=== PATIENT | female | born 1930 | race Caucasian/White ===

== ENCOUNTER 2018-02-22 15:09 | Inpatient (IN) | payer MEDICARE, OTHER ==
[2018-02-22] MEDS: CEFEPIME 2GM/50 ML (PMX) 50 ML IVPB (15:25)
[2018-02-22 15:43] LABS: ADD MAN DIFF? NO
[2018-02-22 15:48] LABS: ABNORMAL IP MESSAGE 1; BASOPHILS % 0.2 % (0.0-2.0); EOSINOPHILS % 0.1 % (0.0-7.0); HEMATOCRIT 36.4 % (37.0-47.0); LYMPHOCYTES # 0.4 10^3/ul (0.8-2.9); LYMPHOCYTES % 2.5 % (15.0-51.0); MEAN CORPUSCULAR HEMOGLOBIN 29.1 pg (29.0-33.0); MEAN CORPUSCULAR VOLUME 88.3 fl (82.0-101.0); MONOCYTE # 0.8 10^3/ul (0.3-0.9); MONOCYTES % 4.7 % (0.0-11.0); NEUTROPHIL # 15.2 10^3/ul (1.6-7.5); PLATELET COUNT 194 10^3/UL (140-415); POSITIVE DIFF @See below; RED BLOOD COUNT 4.12 10^6/ul (4.20-5.40); RED CELL DISTRIBUTION WIDTH 12.6 % (11.5-14.5)
[2018-02-22 15:48] LABS: WHITE BLOOD COUNT 16.5 10^3/ul (4.8-10.8)
[2018-02-22] MEDS: ACETAMINOPHEN 500 MG TAB PO (16:06)
[2018-02-22] MEDS: SODIUM CHLORIDE 0.9% 1L BAG IV* (16:06)
[2018-02-22] MEDS: ONDANSETRON 4 MG INJ IV (16:06)
[2018-02-22 16:07] LABS: ALANINE AMINOTRANSFERASE 565 IU/L (13-69); ALBUMIN 4.4 g/dl (3.3-4.9); ALBUMIN/GLOBULIN RATIO 1.33; ALKALINE PHOSPHATASE 320 IU/L (42-121); ANION GAP 12 (5-13); BILIRUBIN,INDIRECT 1.1 mg/dl (0-1.1); BILIRUBIN,TOTAL 1.8 mg/dl (0.2-1.3); BLOOD UREA NITROGEN 23 mg/dl (7-20); CALCIUM 9.3 mg/dl (8.4-10.2); CARBON DIOXIDE 26 mmol/L (21-31); CHLORIDE 98 mmol/L (97-110); CREATININE 1.15 mg/dl (0.44-1.00); GLUCOSE 215 mg/dl (70-220); INR 1.04; LIPASE 144 U/L (23-300); POTASSIUM 4.7 mmol/L (3.5-5.1); PROTIME 13.7 Sec (11.9-14.9); PT RATIO 1.1; SODIUM 136 mmol/L (135-144); TOTAL PROTEIN 7.7 g/dl (6.1-8.1)
[2018-02-22 16:08] LABS: PARTIAL THROMBOPLASTIN TIME 27.2 Sec (23.0-35.0)
[2018-02-22 16:21] LABS: TROPONIN-I 0.125 ng/ml (0.000-0.120)
[2018-02-22 16:22] LABS: ASPARTATE AMINO TRANSFERASE 1127 IU/L (15-46)
[2018-02-22] MEDS: ASPIRIN 81 MG TAB PO (17:06)
[2018-02-22 17:23] LABS: ADD UMIC YES; UR ASCORBIC ACID NEGATIVE (NEGATIVE); UR BACTERIA MODERATE /HPF (NONE SEEN); UR BILIRUBIN (Dip) NEGATIVE (NEGATIVE); UR BLOOD (Dip) 1+ mg/dL (NEGATIVE); UR CLARITY SLIGHTLY CLOUDY (CLEAR); UR COLOR AMBER (YELLOW); UR GLUCOSE (Dip) NEGATIVE (NEGATIVE); UR KETONES (Dip) TRACE mg/dL (NEGATIVE); UR LEUKOCYTE ESTERASE (Dip) NEGATIVE Leu/ul (NEGATIVE); UR MUCUS FEW /HPF (NONE SEEN); UR NITRITE (Dip) NEGATIVE (NEGATIVE); UR RBC 1 /HPF (0-5); UR SPECIFIC GRAVITY (Dip) 1.017 (1.003-1.030); UR TOTAL PROTEIN (Dip) 2+ mg/dl (NEGATIVE); UR UROBILINOGEN (Dip) 2+ mg/dL (NEGATIVE); UR WBC 4 /HPF (0-5)
[2018-02-22] MEDS ORDERED: ACETAMINOPHEN 325 MG TAB PO (17:30)
[2018-02-22] MEDS ORDERED: ONDANSETRON 4 MG INJ IV (17:30)
[2018-02-22 17:55] LABS: HEMOGLOBIN A1C 6.1 % (0-5.9)
[2018-02-22] MEDS ORDERED: MAGNESIUM HYDROXIDE 30ML CUP PO (18:00)
[2018-02-22] MEDS ORDERED: DOCUSATE SODIUM 100 MG CAP PO (18:00)
[2018-02-22] MEDS ORDERED: NACL 0.9% 3 ML SYG IV (18:00)
[2018-02-22] MEDS ORDERED: LORAZEPAM 0.5 MG TAB PO (18:00)
[2018-02-22 18:23] LABS: THYROID STIMULATING HORMONE 0.213 MIU/L (0.465-4.680)
[2018-02-22] MEDS ORDERED: GLUCAGON 1 MG INJ IM (18:30)
[2018-02-22] MEDS ORDERED: DEXTROSE 50% 50 ML SYRINGE IV ×2 (18:30)
[2018-02-22] MEDS ORDERED: GLUCOSE GEL 15 GRAM TUBE PO ×2 (18:30)
[2018-02-22] MEDS ORDERED: GLUCOSE GEL 15 GRAM TUBE BUCCAL (18:30)
[2018-02-22] MEDS: DEXTROSE 5%-0.45% NACL 1,000 ML IV (18:44)
[2018-02-22] MEDS: PIPER-TAZO 3.375 GM IV (PMX) 100 ML IVPB (20:47)
[2018-02-22] MEDS ORDERED: INSULIN ASPART [NOVOLOG] 3 ML PEN SC (21:00)
[2018-02-22] MEDS ORDERED: NON-FORMULARY/PATIENT OWN MED (Rosuvastatin Calcium* (Crestor*) 20 MG) PO (21:00)
[2018-02-22] MEDS: GABAPENTIN 100 MG CAP PO (23:21)
[2018-02-22] MEDS: FERROUS SULFATE (EC) 325 MG TAB PO (23:21)
[2018-02-22] MEDS: DOCUSATE SODIUM 100 MG CAP PO (23:21)
[2018-02-22] MEDS: ATORVASTATIN 80 MG TAB PO (23:21)
[2018-02-22] MEDS: ACETAMINOPHEN 325 MG TAB PO (23:59)
[2018-02-23] MEDS: INSULIN ASPART [NOVOLOG] 3 ML PEN SC ×7 (00:07→21:00)
[2018-02-23 00:26] LABS: LACTIC ACID 1.1 mmol/L (0.5-2.0)
[2018-02-23 00:48] LABS: CREATINE KINASE 194 IU/L (23-200)
[2018-02-23 02:20] LABS: CK INDEX 2.2; CK-MB 4.32 ng/ml (0.0-2.4)
[2018-02-23 05:06] LABS: ADD MAN DIFF? NO
[2018-02-23] MEDS: PIPER-TAZO 3.375 GM IV (PMX) 100 ML IVPB ×3 (05:20→23:25)
[2018-02-23 05:21] LABS: WHITE BLOOD COUNT 15.4 10^3/ul (4.8-10.8)
[2018-02-23 05:21] LABS: BASOPHILS % 0.2 % (0.0-2.0); EOSINOPHILS % 0.1 % (0.0-7.0); HEMATOCRIT 34.6 % (37.0-47.0); HEMOGLOBIN 11.4 g/dl (12.0-16.0); LYMPHOCYTES # 0.9 10^3/ul (0.8-2.9); LYMPHOCYTES % 5.8 % (15.0-51.0); MEAN CORPUSCULAR HEMOGLOBIN 29.3 pg (29.0-33.0); MEAN CORPUSCULAR HGB CONC 32.9 g/dl (32.0-37.0); MEAN CORPUSCULAR VOLUME 88.9 fl (82.0-101.0); MEAN PLATELET VOLUME 11.2 fl (7.4-10.4); MONOCYTE # 1.4 10^3/ul (0.3-0.9); MONOCYTES % 9.2 % (0.0-11.0); NEUTROPHIL # 12.9 10^3/ul (1.6-7.5); PLATELET COUNT 174 10^3/UL (140-415); RED BLOOD COUNT 3.89 10^6/ul (4.20-5.40); RED CELL DISTRIBUTION WIDTH 13.2 % (11.5-14.5)
[2018-02-23] MEDS: PANTOPRAZOLE 40 MG INJ IV (05:23)
[2018-02-23 05:55] LABS: CREATINE KINASE 198 IU/L (23-200)
[2018-02-23 06:01] LABS: CK INDEX 2.2; CK-MB 4.39 ng/ml (0.0-2.4)
[2018-02-23] MEDS: LEVOTHYROXINE 75 MCG TAB PO (06:06)
[2018-02-23] MEDS: DEXTROSE 5%-0.45% NACL 1,000 ML IV ×2 (06:09→20:11)
[2018-02-23] MEDS: ACETAMINOPHEN 325 MG TAB PO (06:09)
[2018-02-23 06:19] LABS: ALANINE AMINOTRANSFERASE 686 IU/L (13-69); ALBUMIN 3.8 g/dl (3.3-4.9); ALBUMIN/GLOBULIN RATIO 1.35; ALKALINE PHOSPHATASE 308 IU/L (42-121); ANION GAP 12 (5-13); ASPARTATE AMINO TRANSFERASE 739 IU/L (15-46); BILIRUBIN,TOTAL 2.9 mg/dl (0.2-1.3); BLOOD UREA NITROGEN 23 mg/dl (7-20); CALCIUM 8.9 mg/dl (8.4-10.2); CARBON DIOXIDE 27 mmol/L (21-31); CHLORIDE 101 mmol/L (97-110); CREATININE 1.31 mg/dl (0.44-1.00); GLUCOSE 145 mg/dl (70-220); MAGNESIUM 2.1 mg/dl (1.7-2.5); POTASSIUM 4.7 mmol/L (3.5-5.1); SODIUM 140 mmol/L (135-144); TOTAL PROTEIN 6.6 g/dl (6.1-8.1)
[2018-02-23] MEDS: DOCUSATE SODIUM 100 MG CAP PO ×2 (08:42→21:00)
[2018-02-23] MEDS: ASPIRIN (EC) 81 MG TAB PO (08:42)
[2018-02-23] MEDS: HYDROCHLOROTHIAZIDE 12.5 MG CAP PO (08:43)
[2018-02-23] MEDS: FERROUS SULFATE (EC) 325 MG TAB PO ×2 (08:44→21:00)
[2018-02-23] MEDS: LOSARTAN 50 MG TAB PO (08:45)
[2018-02-23] MEDS: ESCITALOPRAM 10 MG TAB PO (08:46)
[2018-02-23] MEDS: AMLODIPINE 10 MG TAB PO (08:46)
[2018-02-23] MEDS: METOPROLOL (XL) 50 MG TAB PO (08:46)
[2018-02-23] MEDS ORDERED: NON-FORMULARY/PATIENT OWN MED (Esomeprazole Mag Trihydrate (Nexium) 40 MG) PO (09:00)
[2018-02-23] MEDS ORDERED: NON-FORMULARY/PATIENT OWN MED (Olmesartan-Amlodipine-HCTZ (Tribenzor) 1 TAB) PO (09:00)
[2018-02-23] MEDS ORDERED: HEPARIN 1000 UNITS/ML 10 ML INJ IV (12:00)
[2018-02-23] MEDS: HEPARIN 1000 UNITS/ML 10 ML INJ IV (13:33)
[2018-02-23 13:40] LABS: ADD MAN DIFF? NO
[2018-02-23 13:43] LABS: BASOPHILS % 0.2 % (0.0-2.0); EOSINOPHILS % 0.2 % (0.0-7.0); HEMATOCRIT 33.4 % (37.0-47.0); LYMPHOCYTES # 0.8 10^3/ul (0.8-2.9); LYMPHOCYTES % 5.5 % (15.0-51.0); MEAN CORPUSCULAR HEMOGLOBIN 29.3 pg (29.0-33.0); MEAN CORPUSCULAR HGB CONC 32.9 g/dl (32.0-37.0); MEAN CORPUSCULAR VOLUME 89.1 fl (82.0-101.0); MEAN PLATELET VOLUME 11.1 fl (7.4-10.4); MONOCYTE # 1.4 10^3/ul (0.3-0.9); MONOCYTES % 9.8 % (0.0-11.0); NEUTROPHIL # 11.6 10^3/ul (1.6-7.5); NEUTROPHILS % 83.7 % (39.0-77.0); PLATELET COUNT 168 10^3/UL (140-415); RED BLOOD COUNT 3.75 10^6/ul (4.20-5.40); RED CELL DISTRIBUTION WIDTH 13.2 % (11.5-14.5)
[2018-02-23 13:43] LABS: WHITE BLOOD COUNT 13.8 10^3/ul (4.8-10.8)
[2018-02-23 14:03] LABS: INR 1.23; PARTIAL THROMBOPLASTIN TIME 30.5 Sec (23.0-35.0); PROTIME 15.7 Sec (11.9-14.9); PT RATIO 1.2
[2018-02-23] MEDS: HEPARIN 25000 UNITS/250 ML 250 ML IV (14:05)
[2018-02-23 14:14] LABS: CREATINE KINASE 214 IU/L (23-200)
[2018-02-23 14:28] LABS: CK INDEX 1.6; CK-MB 3.43 ng/ml (0.0-2.4)
[2018-02-23] MEDS ORDERED: IOHEXOL 300MG/ML 30 ML BTL (17:37)
[2018-02-23] MEDS ORDERED: INDOMETHACIN 50 MG SUPP PR (18:00)
[2018-02-23] MEDS: GABAPENTIN 100 MG CAP PO (21:00)
[2018-02-23] MEDS: ATORVASTATIN 80 MG TAB PO (21:00)
[2018-02-24] MEDS: INSULIN ASPART [NOVOLOG] 3 ML PEN SC ×5 (00:43→21:00)
[2018-02-24] MEDS: ACCU-CHEK XX (02:00)
[2018-02-24 05:42] LABS: ADD MAN DIFF? NO
[2018-02-24 05:44] LABS: BASOPHIL # 0.1 10^3/ul (0.0-0.1); BASOPHILS % 0.6 % (0.0-2.0); EOSINOPHILS # 0.1 10^3/ul (0.0-0.5); EOSINOPHILS % 1.5 % (0.0-7.0); HEMATOCRIT 31.1 % (37.0-47.0); HEMOGLOBIN 10.2 g/dl (12.0-16.0); LYMPHOCYTES # 0.8 10^3/ul (0.8-2.9); LYMPHOCYTES % 9.3 % (15.0-51.0); MEAN CORPUSCULAR HEMOGLOBIN 29.6 pg (29.0-33.0); MEAN CORPUSCULAR HGB CONC 32.8 g/dl (32.0-37.0); MEAN CORPUSCULAR VOLUME 90.1 fl (82.0-101.0); MEAN PLATELET VOLUME 11.8 fl (7.4-10.4); MONOCYTE # 0.9 10^3/ul (0.3-0.9); MONOCYTES % 10.6 % (0.0-11.0); NEUTROPHIL # 6.8 10^3/ul (1.6-7.5); NEUTROPHILS % 77.7 % (39.0-77.0); PLATELET COUNT 156 10^3/UL (140-415); RED BLOOD COUNT 3.45 10^6/ul (4.20-5.40); RED CELL DISTRIBUTION WIDTH 13.3 % (11.5-14.5)
[2018-02-24 05:44] LABS: WHITE BLOOD COUNT 8.8 10^3/ul (4.8-10.8)
[2018-02-24] MEDS: PANTOPRAZOLE 40 MG INJ IV (06:06)
[2018-02-24] MEDS: PIPER-TAZO 3.375 GM IV (PMX) 100 ML IVPB ×3 (06:07→20:54)
[2018-02-24] MEDS: LEVOTHYROXINE 75 MCG TAB PO (06:07)
[2018-02-24] MEDS: DEXTROSE 5%-0.45% NACL 1,000 ML IV ×2 (06:07→22:51)
[2018-02-24 06:09] LABS: CREATINE KINASE 175 IU/L (23-200)
[2018-02-24 06:21] LABS: CK INDEX 1.4; CK-MB 2.44 ng/ml (0.0-2.4)
[2018-02-24 06:25] LABS: ALANINE AMINOTRANSFERASE 397 IU/L (13-69); ALBUMIN 3.5 g/dl (3.3-4.9); ALBUMIN/GLOBULIN RATIO 1.16; ALKALINE PHOSPHATASE 273 IU/L (42-121); ASPARTATE AMINO TRANSFERASE 279 IU/L (15-46); B-TYPE NATRIURETIC PEPTIDE 1990 PG/ML (0-450); BILIRUBIN,INDIRECT 0.6 mg/dl (0-1.1); BILIRUBIN,TOTAL 0.8 mg/dl (0.2-1.3); BLOOD UREA NITROGEN 23 mg/dl (7-20); CALCIUM 8.2 mg/dl (8.4-10.2); CARBON DIOXIDE 25 mmol/L (21-31); CREATININE 1.48 mg/dl (0.44-1.00); GLUCOSE 157 mg/dl (70-220); TOTAL PROTEIN 6.5 g/dl (6.1-8.1)
[2018-02-24 06:33] LABS: FREE T4 (FREE THYROXINE) 1.37 ng/dl (0.85-1.93)
[2018-02-24 06:58] LABS: CHOLESTEROL 114 mg/dl (100-200)
[2018-02-24 06:58] LABS: CHOL/HDL RATIO 4.7 RATIO; HDL CHOLESTEROL 24 mg/dl (33-92); LDL CHOLESTEROL,CALCULATED 51 mg/dl; TRIGLYCERIDES 195 mg/dl (0-149)
[2018-02-24 07:10] LABS: ANION GAP 10 (5-13); CHLORIDE 102 mmol/L (97-110); SODIUM 137 mmol/L (135-144)
[2018-02-24 08:00] LABS: MAGNESIUM 2.4 mg/dl (1.7-2.5)
[2018-02-24] MEDS: ESCITALOPRAM 10 MG TAB PO (09:00)
[2018-02-24] MEDS ORDERED: ASPIRIN 300 MG SUPP PR (09:00)
[2018-02-24] MEDS: DOCUSATE SODIUM 100 MG CAP PO ×2 (09:00→20:54)
[2018-02-24] MEDS: LOSARTAN 50 MG TAB PO (09:00)
[2018-02-24] MEDS: FERROUS SULFATE (EC) 325 MG TAB PO ×2 (09:00→20:53)
[2018-02-24] MEDS: HYDROCHLOROTHIAZIDE 12.5 MG CAP PO (09:00)
[2018-02-24] MEDS: ASPIRIN (EC) 81 MG TAB PO (10:30)
[2018-02-24] MEDS: METOPROLOL (XL) 50 MG TAB PO (10:31)
[2018-02-24] MEDS: AMLODIPINE 10 MG TAB PO (10:31)
[2018-02-24 16:48] LABS: ADD UMIC YES; UR AMORPHOUS CRYSTAL FEW /HPF (NONE SEEN); UR ASCORBIC ACID NEGATIVE (NEGATIVE); UR BACTERIA FEW /HPF (NONE SEEN); UR BILIRUBIN (Dip) NEGATIVE (NEGATIVE); UR BLOOD (Dip) 1+ mg/dL (NEGATIVE); UR CLARITY SLIGHTLY CLOUDY (CLEAR); UR COLOR AMBER (YELLOW); UR GLUCOSE (Dip) NEGATIVE (NEGATIVE); UR KETONES (Dip) NEGATIVE (NEGATIVE); UR LEUKOCYTE ESTERASE (Dip) NEGATIVE Leu/ul (NEGATIVE); UR NITRITE (Dip) NEGATIVE (NEGATIVE); UR RBC 3 /HPF (0-5); UR SPECIFIC GRAVITY (Dip) 1.029 (1.003-1.030); UR SQUAMOUS EPITHELIAL CELL FEW /HPF (FEW); UR TOTAL PROTEIN (Dip) 2+ mg/dl (NEGATIVE); UR UROBILINOGEN (Dip) 1+ mg/dL (NEGATIVE); UR WBC 10 /HPF (0-5)
[2018-02-24 16:59] LABS: SODIUM,URINE RANDOM 67 mmol/L (30-90)
[2018-02-24 16:59] LABS: CREATININE,URINE RANDOM 220.31 mg/dl (20-320)
[2018-02-24] MEDS: ATORVASTATIN 80 MG TAB PO (20:53)
[2018-02-24] MEDS: GABAPENTIN 100 MG CAP PO (20:53)
[2018-02-25] MEDS: ACCU-CHEK XX (02:00)
[2018-02-25] MEDS: PIPER-TAZO 3.375 GM IV (PMX) 100 ML IVPB ×3 (05:11→22:00)
[2018-02-25] MEDS: PANTOPRAZOLE (EC) 40 MG TAB PO (05:11)
[2018-02-25] MEDS: LEVOTHYROXINE 75 MCG TAB PO (05:11)
[2018-02-25 06:26] LABS: ADD MAN DIFF? NO
[2018-02-25 06:41] LABS: WHITE BLOOD COUNT 6.7 10^3/ul (4.8-10.8)
[2018-02-25 06:41] LABS: BASOPHILS % 0.5 % (0.0-2.0); EOSINOPHILS # 0.2 10^3/ul (0.0-0.5); EOSINOPHILS % 3.6 % (0.0-7.0); HEMATOCRIT 31.9 % (37.0-47.0); HEMOGLOBIN 10.4 g/dl (12.0-16.0); LYMPHOCYTES % 14.3 % (15.0-51.0); MEAN CORPUSCULAR HEMOGLOBIN 29.6 pg (29.0-33.0); MEAN CORPUSCULAR HGB CONC 32.6 g/dl (32.0-37.0); MEAN CORPUSCULAR VOLUME 90.9 fl (82.0-101.0); MEAN PLATELET VOLUME 11.9 fl (7.4-10.4); MONOCYTE # 0.9 10^3/ul (0.3-0.9); MONOCYTES % 13.8 % (0.0-11.0); NEUTROPHIL # 4.5 10^3/ul (1.6-7.5); NEUTROPHILS % 67.5 % (39.0-77.0); PLATELET COUNT 182 10^3/UL (140-415); RED BLOOD COUNT 3.51 10^6/ul (4.20-5.40); RED CELL DISTRIBUTION WIDTH 13.2 % (11.5-14.5)
[2018-02-25 07:12] LABS: ANION GAP 9 (5-13); BLOOD UREA NITROGEN 19 mg/dl (7-20); CALCIUM 8.9 mg/dl (8.4-10.2); CARBON DIOXIDE 29 mmol/L (21-31); CHLORIDE 105 mmol/L (97-110); CREATININE 1.21 mg/dl (0.44-1.00); GLUCOSE 150 mg/dl (70-220); MAGNESIUM 2.4 mg/dl (1.7-2.5); PHOSPHORUS 2.9 mg/dl (2.5-4.9); POTASSIUM 4.3 mmol/L (3.5-5.1); SODIUM 143 mmol/L (135-144)
[2018-02-25] MEDS: INSULIN ASPART [NOVOLOG] 3 ML PEN SC ×4 (07:39→21:00)
[2018-02-25] MEDS: ASPIRIN (EC) 81 MG TAB PO (08:34)
[2018-02-25] MEDS: AMLODIPINE 10 MG TAB PO (08:36)
[2018-02-25] MEDS: FERROUS SULFATE (EC) 325 MG TAB PO ×2 (08:36→22:01)
[2018-02-25] MEDS: METOPROLOL (XL) 50 MG TAB PO (08:36)
[2018-02-25] MEDS: DOCUSATE SODIUM 100 MG CAP PO ×2 (08:37→22:01)
[2018-02-25] MEDS: ESCITALOPRAM 10 MG TAB PO (08:37)
[2018-02-25] MEDS: DEXTROSE 5%-0.45% NACL 1,000 ML IV (14:33)
[2018-02-25] MEDS ORDERED: INDOMETHACIN 50 MG SUPP PR (18:29)
[2018-02-25] MEDS ORDERED: IOHEXOL 300MG/ML 30 ML BTL (18:29)
[2018-02-25] MEDS ORDERED: ROCURONIUM 50 MG INJ (19:05)
[2018-02-25] MEDS ORDERED: ETOMIDATE 20 MG INJ (19:05)
[2018-02-25] MEDS ORDERED: LIDOCAINE 1% (MDV) 20 ML INJ (19:05)
[2018-02-25] MEDS ORDERED: MIDAZOLAM 1 MG/ML 2 ML INJ (19:05)
[2018-02-25] MEDS ORDERED: FENTAnyl 50 MCG/ML VIAL (19:05)
[2018-02-25] MEDS ORDERED: PHENYLephrine (100 MCG/ML) 5ML SYG (19:30)
[2018-02-25] MEDS ORDERED: LABETALOL HCL 20MG INJ (19:55)
[2018-02-25] MEDS ORDERED: SUGAMMADEX SODIUM 200 MG/2 ML VIAL IV (20:43)
[2018-02-25] MEDS: ATORVASTATIN 80 MG TAB PO (22:01)
[2018-02-25] MEDS: DIATR MEGLU/DIATRIZOATE SODIUM 120 ML BTL (22:01)
[2018-02-25] MEDS: GABAPENTIN 100 MG CAP PO (22:01)
[2018-02-25] MEDS: INDOMETHACIN 50 MG SUPP PR (22:02)
[2018-02-25] MEDS: ONDANSETRON 4 MG INJ IV (22:59)
[2018-02-26] MEDS: DEXTROSE 5%-0.45% NACL 1,000 ML IV (01:31)
[2018-02-26] MEDS: ACCU-CHEK XX (02:00)
[2018-02-26] MEDS: METOCLOPRAMIDE 10 MG INJ IV (03:27)
[2018-02-26] MEDS ORDERED: METOCLOPRAMIDE 10 MG INJ IM (03:30)
[2018-02-26] MEDS ORDERED: ONDANSETRON 4 MG INJ IV (06:00)
[2018-02-26] MEDS: PANTOPRAZOLE (EC) 40 MG TAB PO (06:00)
[2018-02-26] MEDS: PIPER-TAZO 3.375 GM IV (PMX) 100 ML IVPB ×2 (06:07→13:27)
[2018-02-26] MEDS: LEVOTHYROXINE 75 MCG TAB PO (06:08)
[2018-02-26] MEDS: morphine 4 MG/ML VIAL IV ×2 (06:39→06:59)
[2018-02-26] MEDS: ESCITALOPRAM 10 MG TAB PO (08:50)
[2018-02-26] MEDS: ASPIRIN (EC) 81 MG TAB PO (08:50)
[2018-02-26] MEDS: METOPROLOL (XL) 50 MG TAB PO (08:51)
[2018-02-26] MEDS: AMLODIPINE 10 MG TAB PO (08:51)
[2018-02-26] MEDS: DOCUSATE SODIUM 100 MG CAP PO ×2 (08:52→20:56)
[2018-02-26] MEDS: FERROUS SULFATE (EC) 325 MG TAB PO ×2 (08:52→20:56)
[2018-02-26] MEDS: INSULIN ASPART [NOVOLOG] 3 ML PEN SC ×4 (09:06→20:57)
[2018-02-26 11:27] LABS: ADD MAN DIFF? NO
[2018-02-26 11:38] LABS: ABNORMAL IP MESSAGE 1; BASOPHILS % 0.3 % (0.0-2.0); HEMATOCRIT 33.9 % (37.0-47.0); HEMOGLOBIN 10.9 g/dl (12.0-16.0); LYMPHOCYTES # 0.6 10^3/ul (0.8-2.9); LYMPHOCYTES % 5.8 % (15.0-51.0); MEAN CORPUSCULAR HEMOGLOBIN 28.8 pg (29.0-33.0); MEAN CORPUSCULAR HGB CONC 32.2 g/dl (32.0-37.0); MEAN CORPUSCULAR VOLUME 89.4 fl (82.0-101.0); MEAN PLATELET VOLUME 11.5 fl (7.4-10.4); MONOCYTE # 0.8 10^3/ul (0.3-0.9); MONOCYTES % 7.9 % (0.0-11.0); NEUTROPHIL # 8.3 10^3/ul (1.6-7.5); NEUTROPHILS % 85.4 % (39.0-77.0); PLATELET COUNT 201 10^3/UL (140-415); RED BLOOD COUNT 3.79 10^6/ul (4.20-5.40); RED CELL DISTRIBUTION WIDTH 12.9 % (11.5-14.5)
[2018-02-26 11:38] LABS: WHITE BLOOD COUNT 9.8 10^3/ul (4.8-10.8)
[2018-02-26 11:43] LABS: POSITIVE DIFF @See below
[2018-02-26 12:02] LABS: ANION GAP 9 (5-13); BLOOD UREA NITROGEN 14 mg/dl (7-20); CALCIUM 8.9 mg/dl (8.4-10.2); CARBON DIOXIDE 28 mmol/L (21-31); CHLORIDE 105 mmol/L (97-110); CREATININE 0.96 mg/dl (0.44-1.00); GLUCOSE 205 mg/dl (70-220); MAGNESIUM 1.9 mg/dl (1.7-2.5); PHOSPHORUS 4.3 mg/dl (2.5-4.9); POTASSIUM 4.2 mmol/L (3.5-5.1); SODIUM 142 mmol/L (135-144)
[2018-02-26 12:33] LABS: AMYLASE 1770 U/L (11-123)
[2018-02-26 12:33] LABS: LIPASE 16176 U/L (23-300)
[2018-02-26 13:04] LABS: ALANINE AMINOTRANSFERASE 247 IU/L (13-69); ALBUMIN 3.5 g/dl (3.3-4.9); ALKALINE PHOSPHATASE 331 IU/L (42-121); ASPARTATE AMINO TRANSFERASE 109 IU/L (15-46); BILIRUBIN,INDIRECT 0.3 mg/dl (0-1.1); BILIRUBIN,TOTAL 0.3 mg/dl (0.2-1.3); TOTAL PROTEIN 6.3 g/dl (6.1-8.1)
[2018-02-26] MEDS: SOD CHLORIDE 0.9% 1,000 ML IV ×2 (13:21→20:56)
[2018-02-26 14:43] LABS: CREATININE, RANDOM URINE 211 mg/dL (20-275); MICROALBUMIN 12.5 mg/dL; MICROALBUMIN/CREATININE RATIO 59 (<30)
[2018-02-26] MEDS: MEROPENEM 1 GM/50ML(PMX) 50 ML IVPB (17:16)
[2018-02-26] MEDS: GABAPENTIN 100 MG CAP PO (20:56)
[2018-02-26] MEDS: ATORVASTATIN 80 MG TAB PO (20:57)
[2018-02-27] MEDS: ACCU-CHEK XX (01:32)
[2018-02-27] MEDS: MEROPENEM 1 GM/50ML(PMX) 50 ML IVPB ×3 (01:36→20:58)
[2018-02-27] MEDS: SOD CHLORIDE 0.9% 1,000 ML IV ×4 (02:20→22:30)
[2018-02-27] MEDS: ONDANSETRON INJ 8 MG in DEXTROSE 5% 50 ML IV (03:41)
[2018-02-27] MEDS: ACETAMINOPHEN 325 MG TAB PO (05:01)
[2018-02-27] MEDS: MECLIZINE 25 MG TAB PO (05:01)
[2018-02-27] MEDS: PANTOPRAZOLE (EC) 40 MG TAB PO (06:00)
[2018-02-27 06:06] LABS: ADD MAN DIFF? NO
[2018-02-27] MEDS: LEVOTHYROXINE 75 MCG TAB PO (06:11)
[2018-02-27 06:12] LABS: WHITE BLOOD COUNT 20.2 10^3/ul (4.8-10.8)
[2018-02-27 06:12] LABS: ABNORMAL IP MESSAGE 1; BASOPHILS % 0.2 % (0.0-2.0); HEMATOCRIT 35.7 % (37.0-47.0); HEMOGLOBIN 11.6 g/dl (12.0-16.0); LYMPHOCYTES # 0.8 10^3/ul (0.8-2.9); LYMPHOCYTES % 3.9 % (15.0-51.0); MEAN CORPUSCULAR HEMOGLOBIN 28.9 pg (29.0-33.0); MEAN CORPUSCULAR HGB CONC 32.5 g/dl (32.0-37.0); MEAN CORPUSCULAR VOLUME 88.8 fl (82.0-101.0); MEAN PLATELET VOLUME 11.4 fl (7.4-10.4); MONOCYTE # 1.5 10^3/ul (0.3-0.9); MONOCYTES % 7.6 % (0.0-11.0); NEUTROPHIL # 17.6 10^3/ul (1.6-7.5); NEUTROPHILS % 87.3 % (39.0-77.0); PLATELET COUNT 237 10^3/UL (140-415); POSITIVE DIFF @See below; RED BLOOD COUNT 4.02 10^6/ul (4.20-5.40); RED CELL DISTRIBUTION WIDTH 13.2 % (11.5-14.5)
[2018-02-27 06:51] LABS: ANION GAP 13 (5-13); BLOOD UREA NITROGEN 12 mg/dl (7-20); CALCIUM 8.6 mg/dl (8.4-10.2); CARBON DIOXIDE 26 mmol/L (21-31); CHLORIDE 105 mmol/L (97-110); CREATININE 0.78 mg/dl (0.44-1.00); GLUCOSE 160 mg/dl (70-220); MAGNESIUM 1.8 mg/dl (1.7-2.5); PHOSPHORUS 2.8 mg/dl (2.5-4.9); POTASSIUM 3.6 mmol/L (3.5-5.1); SODIUM 144 mmol/L (135-144)
[2018-02-27 07:04] LABS: LIPASE 5062 U/L (23-300)
[2018-02-27] MEDS: INSULIN ASPART [NOVOLOG] 3 ML PEN SC ×4 (08:00→21:00)
[2018-02-27] MEDS: AMLODIPINE 10 MG TAB PO (09:00)
[2018-02-27] MEDS: METOPROLOL (XL) 50 MG TAB PO (09:00)
[2018-02-27] MEDS: ASPIRIN (EC) 81 MG TAB PO (09:00)
[2018-02-27] MEDS: FERROUS SULFATE (EC) 325 MG TAB PO ×2 (09:00→21:00)
[2018-02-27] MEDS: ESCITALOPRAM 10 MG TAB PO (09:00)
[2018-02-27] MEDS: DOCUSATE SODIUM 100 MG CAP PO ×2 (09:00→21:00)
[2018-02-27 10:51] LABS: ALANINE AMINOTRANSFERASE 202 IU/L (13-69); ALBUMIN 3.4 g/dl (3.3-4.9); ALKALINE PHOSPHATASE 314 IU/L (42-121); ASPARTATE AMINO TRANSFERASE 66 IU/L (15-46); BILIRUBIN,INDIRECT 0.4 mg/dl (0-1.1); BILIRUBIN,TOTAL 0.4 mg/dl (0.2-1.3); TOTAL PROTEIN 6.2 g/dl (6.1-8.1)
[2018-02-27] MEDS: LABETALOL HCL 20MG INJ IV ×2 (15:49→20:59)
[2018-02-27] MEDS: morphine 2 MG INJ IV ×2 (18:23→22:29)
[2018-02-27] MEDS: GABAPENTIN 100 MG CAP PO (21:00)
[2018-02-27] MEDS: ATORVASTATIN 80 MG TAB PO (21:00)
[2018-02-28] MEDS: hydrALAzine 20 MG INJ IV (01:24)
[2018-02-28] MEDS: ACCU-CHEK XX (02:00)
[2018-02-28] MEDS: morphine 2 MG INJ IV ×4 (02:44→14:55)
[2018-02-28] MEDS: PANTOPRAZOLE (EC) 40 MG TAB PO (06:00)
[2018-02-28 06:18] LABS: ABNORMAL IP MESSAGE 1; HEMATOCRIT 36.5 % (37.0-47.0); HEMOGLOBIN 11.9 g/dl (12.0-16.0); MEAN CORPUSCULAR HEMOGLOBIN 29.3 pg (29.0-33.0); MEAN CORPUSCULAR HGB CONC 32.6 g/dl (32.0-37.0); MEAN CORPUSCULAR VOLUME 89.9 fl (82.0-101.0); MEAN PLATELET VOLUME 11.1 fl (7.4-10.4); PLATELET COUNT 273 10^3/UL (140-415); RED BLOOD COUNT 4.06 10^6/ul (4.20-5.40); RED CELL DISTRIBUTION WIDTH 13.1 % (11.5-14.5)
[2018-02-28 06:18] LABS: WHITE BLOOD COUNT 27.5 10^3/ul (4.8-10.8)
[2018-02-28] MEDS: LEVOTHYROXINE 100 MCG VIAL IV (06:21)
[2018-02-28] MEDS: SOD CHLORIDE 0.9% 1,000 ML IV ×2 (06:21→16:20)
[2018-02-28 06:32] LABS: ADD MAN DIFF? YES; POSITIVE DIFF @See below
[2018-02-28 06:57] LABS: ANION GAP 14 (5-13); BLOOD UREA NITROGEN 14 mg/dl (7-20); CALCIUM 8.8 mg/dl (8.4-10.2); CARBON DIOXIDE 27 mmol/L (21-31); CHLORIDE 104 mmol/L (97-110); CREATININE 0.73 mg/dl (0.44-1.00); GLUCOSE 165 mg/dl (70-220); PHOSPHORUS 1.8 mg/dl (2.5-4.9); POTASSIUM 3.1 mmol/L (3.5-5.1); SODIUM 145 mmol/L (135-144)
[2018-02-28 07:05] LABS: ALANINE AMINOTRANSFERASE 120 IU/L (13-69); ALBUMIN 3.2 g/dl (3.3-4.9); ALKALINE PHOSPHATASE 266 IU/L (42-121); ASPARTATE AMINO TRANSFERASE 39 IU/L (15-46); BILIRUBIN,INDIRECT 0.4 mg/dl (0-1.1); BILIRUBIN,TOTAL 0.4 mg/dl (0.2-1.3)
[2018-02-28] MEDS: ASPIRIN (EC) 81 MG TAB PO (09:00)
[2018-02-28] MEDS: AMLODIPINE 10 MG TAB PO (09:00)
[2018-02-28] MEDS: METOPROLOL (XL) 50 MG TAB PO (09:00)
[2018-02-28] MEDS: FERROUS SULFATE (EC) 325 MG TAB PO ×2 (09:00→21:00)
[2018-02-28] MEDS: ESCITALOPRAM 10 MG TAB PO (09:00)
[2018-02-28] MEDS: DOCUSATE SODIUM 100 MG CAP PO ×2 (09:00→21:00)
[2018-02-28] MEDS: INSULIN ASPART [NOVOLOG] 3 ML PEN SC ×4 (09:05→21:00)
[2018-02-28] MEDS: MEROPENEM 1 GM/50ML(PMX) 50 ML IVPB ×2 (09:14→21:20)
[2018-02-28] MEDS: PANTOPRAZOLE 40 MG INJ IV (10:15)
[2018-02-28] MEDS: POTASSIUM CHLORIDE 100 ML IVPB (10:16)
[2018-02-28 11:04] LABS: ANISOCYTOSIS 1+ (0-0); BAND NEUTROPHILS #M 1.9 10^3/ul (0.0-0.6); BAND NEUTROPHILS % (M) 7 % (0-4); GIANT THROMBO% (M) 1 % (0-0); LYMPHOCYTES #M 0.5 10^3/ul (0.8-2.9); LYMPHOCYTES % (M) 2 % (15-51); MONOCYTE #M 2.7 10^3/ul (0.3-0.9); MONOCYTES % (M) 10 % (0-11); MYELOCYTES #M 0.2 10^3/ul (0.0-0.0); MYELOCYTES % (M) 1 % (0-0); PLATELET ESTIMATE NORMAL; POIKILOCYTOSIS 1+ (0-0); POLYCHROMASIA 3+ (0-0); PROMYELOCYTES #M 0.2 10^3/ul (0-0); PROMYELOCYTES % (M) 1 % (0-0); SEG NEUT #M 22.2 10^3/ul (1.6-7.5); SEGMENTED NEUTROPHILS (M) % 79 % (39-77); SMUDGE%M 1 % (0-0)
[2018-02-28] MEDS: ENALAPRILAT 1.25 MG INJ IV (11:13)
[2018-02-28 12:15] LABS: LACTIC ACID 1.4 mmol/L (0.5-2.0)
[2018-02-28] MEDS: POTASSIUM PHOSPHATE 30 MM in SOD CHLORIDE 0.9% 250 ML IVPB (12:22)
[2018-02-28] MEDS: LABETALOL HCL 20MG INJ IV (12:50)
[2018-02-28] MEDS: CLONIDINE 0.1 MG/24 HR PATCH TRANSDERM (17:11)
[2018-02-28] MEDS: LORAZEPAM 4 MG/ML VIAL IV (18:47)
[2018-02-28] MEDS: GABAPENTIN 100 MG CAP PO (21:00)
[2018-02-28] MEDS: ATORVASTATIN 80 MG TAB PO (21:00)
[2018-02-28] MEDS ORDERED: ENALAPRILAT 1.25 MG INJ IV (21:30)
[2018-03-01] MEDS: LABETALOL HCL 20MG INJ IV (00:10)
[2018-03-01] MEDS: SOD CHLORIDE 0.9% 1,000 ML IV ×2 (00:21→02:20)
[2018-03-01] MEDS: ACCU-CHEK XX (02:00)
[2018-03-01] MEDS: morphine 4 MG/ML VIAL IV ×2 (02:40→06:57)
[2018-03-01] MEDS: DILTIAZEM 25 MG INJ IV (02:50)
[2018-03-01] MEDS: DIGOXIN 500 MCG INJ IV (03:05)
[2018-03-01] MEDS: DILTIAZEM-D5W 125MG/125ML DRIP 125 ML IV (04:17)
[2018-03-01] MEDS: METOPROLOL (XL) 50 MG TAB PO ×2 (05:36→09:00)
[2018-03-01] MEDS: METOPROLOL 5 MG INJ IV (05:51)
[2018-03-01 06:10] LABS: ABNORMAL IP MESSAGE 1; HEMATOCRIT 37.9 % (37.0-47.0); HEMOGLOBIN 12.2 g/dl (12.0-16.0); MEAN CORPUSCULAR HGB CONC 32.2 g/dl (32.0-37.0); MEAN PLATELET VOLUME 11.1 fl (7.4-10.4); PLATELET COUNT 320 10^3/UL (140-415); RED BLOOD COUNT 4.21 10^6/ul (4.20-5.40); RED CELL DISTRIBUTION WIDTH 13.5 % (11.5-14.5)
[2018-03-01 06:10] LABS: WHITE BLOOD COUNT 28.5 10^3/ul (4.8-10.8)
[2018-03-01 06:21] LABS: ADD MAN DIFF? YES; POSITIVE DIFF @See below
[2018-03-01 06:33] LABS: ALANINE AMINOTRANSFERASE 83 IU/L (13-69); ALBUMIN 3.1 g/dl (3.3-4.9); ALKALINE PHOSPHATASE 247 IU/L (42-121); ASPARTATE AMINO TRANSFERASE 32 IU/L (15-46); BILIRUBIN,INDIRECT 0.2 mg/dl (0-1.1); BILIRUBIN,TOTAL 0.2 mg/dl (0.2-1.3); TOTAL PROTEIN 5.7 g/dl (6.1-8.1)
[2018-03-01 06:40] LABS: ANION GAP 13 (5-13); BLOOD UREA NITROGEN 18 mg/dl (7-20); CARBON DIOXIDE 27 mmol/L (21-31); CHLORIDE 108 mmol/L (97-110); CREATININE 0.79 mg/dl (0.44-1.00); GLUCOSE 166 mg/dl (70-220); MAGNESIUM 2.1 mg/dl (1.7-2.5); PHOSPHORUS 2.4 mg/dl (2.5-4.9); POTASSIUM 3.6 mmol/L (3.5-5.1); SODIUM 148 mmol/L (135-144)
[2018-03-01] MEDS: PANTOPRAZOLE 40 MG INJ IV (06:56)
[2018-03-01] MEDS: LEVOTHYROXINE 100 MCG VIAL IV (06:56)
[2018-03-01] MEDS: INSULIN ASPART [NOVOLOG] 3 ML PEN SC ×4 (08:00→21:00)
[2018-03-01 08:25] LABS: ANISOCYTOSIS 1+ (0-0); BAND NEUTROPHILS #M 6.5 10^3/ul (0.0-0.6); BAND NEUTROPHILS % (M) 23 % (0-4); BASOPHIL #M 0.2 10^3/ul (0.0-0.0); BASOPHILS % (M) 1 % (0-2); BURR CELLS 1+ (0-0); LYMPHOCYTES #M 1.4 10^3/ul (0.8-2.9); LYMPHOCYTES % (M) 5 % (15-51); MONOCYTE #M 1.9 10^3/ul (0.3-0.9); MONOCYTES % (M) 7 % (0-11); MYELOCYTES #M 0.2 10^3/ul (0.0-0.0); MYELOCYTES % (M) 1 % (0-0); OVALOCYTES 1+ (0-0); PLATELET ESTIMATE NORMAL; POIKILOCYTOSIS 1+ (0-0); POLYCHROMASIA 1+ (0-0); SEG NEUT #M 19.8 10^3/ul (1.6-7.5); SEGMENTED NEUTROPHILS (M) % 63 % (39-77); SMUDGE%M 11 % (0-0)
[2018-03-01] MEDS: ASPIRIN (EC) 81 MG TAB PO (09:00)
[2018-03-01] MEDS: DOCUSATE SODIUM 100 MG CAP PO (09:00)
[2018-03-01] MEDS: FERROUS SULFATE (EC) 325 MG TAB PO ×2 (09:00→21:04)
[2018-03-01] MEDS: ESCITALOPRAM 10 MG TAB PO (09:00)
[2018-03-01] MEDS: AMLODIPINE 10 MG TAB PO (09:00)
[2018-03-01] MEDS ORDERED: ACETAMINOPHEN 1000MG/100ML IV 100 ML IVPB (09:30)
[2018-03-01] MEDS: MEROPENEM 1 GM/50ML(PMX) 50 ML IVPB ×2 (09:51→21:00)
[2018-03-01] MEDS: SOD CHLORIDE 0.45% 1,000 ML IV (09:51)
[2018-03-01] MEDS: DEXTROSE 5%-0.45% NACL 1,000 ML IV ×2 (12:00→22:18)
[2018-03-01] MEDS: HYDROmorphONE 1 MG/ML SYG IV ×2 (13:09→17:45)
[2018-03-01] MEDS ORDERED: morphine 4 MG/ML VIAL IV (14:30)
[2018-03-01 15:15] LABS: LIPASE 113 U/L (23-300)
[2018-03-01 15:16] LABS: AMYLASE 50 U/L (11-123)
[2018-03-01] MEDS: POTASSIUM CHLORIDE 100 ML IVPB ×2 (15:50→21:01)
[2018-03-01] MEDS: ATORVASTATIN 80 MG TAB PO (21:04)
[2018-03-01] MEDS: GABAPENTIN 100 MG CAP PO (21:04)
[2018-03-01] MEDS: DIPHENHYDRAMINE 25 MG CAP PO (22:28)
[2018-03-02] MEDS: HYDROmorphONE 1 MG/ML SYG IV ×4 (00:35→13:36)
[2018-03-02] MEDS: ACCU-CHEK XX (02:00)
[2018-03-02] MEDS: LEVOTHYROXINE 100 MCG VIAL IV (05:22)
[2018-03-02] MEDS: PANTOPRAZOLE 40 MG INJ IV (05:22)
[2018-03-02 05:30] LABS: ADD MAN DIFF? NO
[2018-03-02 05:39] LABS: WHITE BLOOD COUNT 24.8 10^3/ul (4.8-10.8)
[2018-03-02 05:39] LABS: ABNORMAL IP MESSAGE 1; BASOPHIL # 0.2 10^3/ul (0.0-0.1); BASOPHILS % 0.6 % (0.0-2.0); EOSINOPHILS # 0.1 10^3/ul (0.0-0.5); EOSINOPHILS % 0.5 % (0.0-7.0); HEMATOCRIT 36.1 % (37.0-47.0); HEMOGLOBIN 11.5 g/dl (12.0-16.0); LYMPHOCYTES # 1.5 10^3/ul (0.8-2.9); MEAN CORPUSCULAR HEMOGLOBIN 28.8 pg (29.0-33.0); MEAN CORPUSCULAR HGB CONC 31.9 g/dl (32.0-37.0); MEAN CORPUSCULAR VOLUME 90.3 fl (82.0-101.0); MEAN PLATELET VOLUME 10.8 fl (7.4-10.4); MONOCYTE # 1.6 10^3/ul (0.3-0.9); MONOCYTES % 6.6 % (0.0-11.0); NEUTROPHIL # 20.5 10^3/ul (1.6-7.5); NEUTROPHILS % 82.6 % (39.0-77.0); PLATELET COUNT 328 10^3/UL (140-415); RED CELL DISTRIBUTION WIDTH 13.3 % (11.5-14.5)
[2018-03-02 06:01] LABS: POSITIVE DIFF @See below
[2018-03-02 06:07] LABS: ANION GAP 8 (5-13); BLOOD UREA NITROGEN 20 mg/dl (7-20); CALCIUM 8.9 mg/dl (8.4-10.2); CARBON DIOXIDE 31 mmol/L (21-31); CHLORIDE 107 mmol/L (97-110); CREATININE 0.71 mg/dl (0.44-1.00); GLUCOSE 209 mg/dl (70-220); POTASSIUM 4.1 mmol/L (3.5-5.1); SODIUM 146 mmol/L (135-144)
[2018-03-02 06:12] LABS: ALANINE AMINOTRANSFERASE 60 IU/L (13-69); ALBUMIN 3.1 g/dl (3.3-4.9); ALKALINE PHOSPHATASE 199 IU/L (42-121); ASPARTATE AMINO TRANSFERASE 33 IU/L (15-46); BILIRUBIN,INDIRECT 0.3 mg/dl (0-1.1); BILIRUBIN,TOTAL 0.3 mg/dl (0.2-1.3)
[2018-03-02] MEDS: DEXTROSE 5%-0.45% NACL 1,000 ML IV (08:00)
[2018-03-02] MEDS: INSULIN ASPART [NOVOLOG] 3 ML PEN SC ×2 (08:00→12:00)
[2018-03-02] MEDS: AMLODIPINE 10 MG TAB PO (08:47)
[2018-03-02] MEDS: METOPROLOL (XL) 50 MG TAB PO (08:48)
[2018-03-02] MEDS: MEROPENEM 1 GM/50ML(PMX) 50 ML IVPB (09:00)
[2018-03-02] MEDS: ASPIRIN (EC) 81 MG TAB PO (09:00)
[2018-03-02] MEDS: FERROUS SULFATE (EC) 325 MG TAB PO (09:00)
[2018-03-02] MEDS: ESCITALOPRAM 10 MG TAB PO (09:00)
[2018-03-02] MEDS ORDERED: DIPHENHYDRAMINE 25 MG CAP PO (09:30)
[2018-03-02] MEDS: POTASSIUM PHOSPHATE 15 MM in SOD CHLORIDE 0.9% 250 ML IVPB (10:00)
[2018-03-02] MEDS: DIPHENHYDRAMINE 50 MG INJ IV (11:07)
[2018-03-02] MEDS: ACETAMINOPHEN 1000MG/100ML IV 100 ML IVPB (12:10)
== END 2018-03-02 14:36 | disposition short-term general hospital (02) | DRG 871 ==
LOC: E/R 15:09 → 6WM 17:24
PROC: 0FJB8ZZ Inspection of Hepatobiliary Duct, Via Natural or Artificial Opening Endoscopic (ICD-10-PCS; principal; 2018-02-25 17:30)
PROC: BF18YZZ Fluoroscopy of Pancreatic Ducts using Other Contrast (ICD-10-PCS; 2018-02-25 17:30)
DX: A41.9 Sepsis, unspecified organism (principal); I21.A1 Myocardial infarction type 2; N17.0 Acute kidney failure with tubular necrosis; K85.90 Acute pancreatitis without necrosis or infection, unspecified; N39.0 Urinary tract infection, site not specified; K80.42 Calculus of bile duct with acute cholecystitis without obstruction; B96.20 Unspecified Escherichia coli [E. coli] as the cause of diseases classified elsewhere; E03.9 Hypothyroidism, unspecified; E83.9 Disorder of mineral metabolism, unspecified; K21.9 Gastro-esophageal reflux disease without esophagitis; I12.9 Hypertensive chronic kidney disease with stage 1 through stage 4 chronic kidney disease, or unspecified chronic kidney disease; E11.22 Type 2 diabetes mellitus with diabetic chronic kidney disease; N18.2 Chronic kidney disease, stage 2 (mild); D64.9 Anemia, unspecified; E87.6 Hypokalemia; E83.39 Other disorders of phosphorus metabolism; I48.0 Paroxysmal atrial fibrillation; Z90.49 Acquired absence of other specified parts of digestive tract
CPT/HCPCS: 36415; 71045; 74018; 74176; 74181; 74240; 74330; 76705; 76775; 78226; 80048; 80053; 80061; 80076; 81001; 81003; 82043; 82150; 82550; 82553; 82962; 83036; 83605; 83690; 83735; 83880; 84100; 84155; 84300; 84439; 84443; 84484; 85025; 85610; 85730; 87040; 87086; 87400; 93005; 93306; 96365; 96366; 96375; 97110; 97116; 97161; 97166; 97530; 99291-25